=== PATIENT | male | born 1955 | race Caucasian/White ===

== ENCOUNTER 2018-10-24 09:03 | Observation (INO) ==
[2018-10-24] MEDS ORDERED: ASPIRIN PO ONE (09:16)
[2018-10-24] MEDS ORDERED: CARDIZEM IV ONE (09:18)
--- NOTE | 2018-10-24 09:26 | PROVIDER DOCUMENTATION ---
HPI-Cardiac General - General Chief Complaint: Chest Pain Stated Complaint: CHEST PAIN Time Seen by Provider: 10/24/18 09:18 Source: patient Allergies/Adverse Reactions: Patient Allergies Allergy/AdvReac Type Severity Reaction Status Date / Time No Known Allergies Allergy Verified 10/24/18 09:36 Home Medications: Home Medication List Medication Instructions Recorded Confirmed Last Taken Type ATORVAstatin [Lipitor] 40 mg PO QHS 10/04/17 10/24/18 Unknown History Isosorbide Mononitrate E.r. [Imdur] 30 mg PO DAILY 10/04/17 10/24/18 Unknown History Levothyroxine [Synthroid] 50 microgm PO DAILY 10/04/17 10/24/18 Unknown History Metoprolol Succinate E.r. [Toprol 25 mg PO DAILY 10/04/17 10/24/18 Unknown History Xl] Aspirin 81 mg PO DAILY 10/05/17 10/24/18 10/03/17 History Amlodipine Besylate 5 mg PO DAILY 10/24/18 10/24/18 Unknown History Fenofibric Acid (Choline) 135 mg PO DAILY 10/24/18 10/24/18 Unknown History [Fenofibric Acid] Niacin 500 mg PO QHS 10/24/18 10/24/18 Unknown History Omeprazole 40 mg PO DAILY 10/24/18 10/24/18 Unknown History - History of Present Illness-Cardiac Nature of Presenting Problem: chest pains that started this am. pt denies shortness of breath or arm pain. pt reorts history of cardiac disease and [place], patient denied chest pain upon arrival, monitor showed atrial fib RVR which was new onset. patient was no aspirin, no other blood thinner, Location: reports: substernal, central Quality of Pain: reports: pressure, tightness Severity in ED: mild Onset/Duration: abrupt, this afternoon Timing: improving, resolved prior to arrival Context/Activities at Onset: reports: none Modifying Factors: improves with: nothing Palpitation Quality: irregular History of arrythmia: denies: A-Fib, WPW, VT, SVT Nitro Today/Relief: reports: no nitro taken today Aspirin Treatment Today: reports: unknown Prior Chest Pain/Cardiac Workup: reports: other (cabg and stent) Associated Symptoms: denies: abdominal pain, diaphoresis, dizziness, edema, fever/chills, shortness of breath Similar Symptoms Previously?: No Recently Seen Here or By Another Healthcare Provider: No Review of Systems - Adult - REVIEW OF SYSTEMS - ADULT Constitutional: denies: fever, fatique Eyes: reports: no symptoms reported Ears, Nose, Mouth & Throat: reports: no symptoms reported Cardiovascular: reports: chest pain, irregular heart rate, palpitations Respiratory: reports: no symptoms reported Gastrointestinal: reports: no symptoms reported Genitourinary: reports: no symptoms reported Musculoskeletal: reports: no symptoms reported Integumentary: reports: no symptoms reported Neurological: reports: no symptoms reported Psychiatric: reports: no symptoms reported Endocrine: reports: no symptoms reported Hematologic/Lymphatic: reports: no symptoms reported Allergic/Immunologic: reports: no symptoms reported Past History - Adult - PAST MEDICAL HISTORY-ADULT Review of Records: reports: Nursing Assessment Review Major Childhood Illnesses: reports: denies history Cardiovascular: reports: CAD, HTN, hyperlipidemia Endocrine/Immune: reports: Diabetes, thyroid disorder (hypothyroidism) - PRIOR SURGERIES/PROCEDURES Surgical/Procedure History: reports: tonsillectomy, other (tripple bypass) - IMMUNIZATION STATUS Childhood Immunizations: See Nurse Assessment Flu Vaccine: See Nurse Assessment - FAMILY HISTORY Family History: reviewed, not pertinent Physical Exam-General - PHYSICAL EXAM-ADULT Initial Vital Signs Reviewed: Yes - CONSTITUTIONAL General Appearance: appears well, alert - EYES Eyes: PERRL/EOMI - HEAD, EARS, NOSE, MOUTH & THROAT HENMT: normocephalic/atraumatic - NECK Neck: non-tender - RESPIRATORY Respiratory: chest non-tender - CARDIOVASCULAR Cardiovascular: no edema, tachycardia, irregularly irregular - GASTROINTESTINAL (ABDOMEN) Abdominal Exam: normal bowel sounds, non tender, soft, no organomegaly, no pulsatile mass - LYMPHATIC Lymphatic: no adenopathy - MUSCULOSKELETAL Back Exam: normal inspection, no CVA tenderness, no vertebral tenderness Extremity: normal range of motion, non-tender, normal gait, normal inspection, no pedal edema, no calf tenderness - SKIN Integumentary: normal color, warm/dry - NEUROLOGIC Neurologic: instrumentation engineer II-XII nml as tested, grossly normal, no motor/sensory deficits - PSYCHIATRIC Psych/Mental Status: normal mood/affect - HEART Score HEART Score: History: Slightly Suspicious HEART Score: ECG: Non-Specific Repolarization Disturbance/LBBB/PM HEART Score: Age: 45-65 Years HEART Score: Risk Factors for Atherosclerotic Disease: > or = 3 Risk Factors or History of Atherosclerotic Disease HEART Score: Troponin: < or = Normal Limit Total HEART Score:: 4 Progress - PLAN OF CARE/RESULTS Progress/Plan/Lab Results: Vital Signs - 8 hr 10/24/18 09:05 10/24/18 09:16 10/24/18 09:17 Temperature 97.9 F Pulse Rate 109 H 104 H 162 H Respiratory Rate 20 35 H 13 Blood Pressure 146/71 124/87 O2 Sat by Pulse Oximetry 95 95 93 L 10/24/18 09:30 10/24/18 09:45 10/24/18 09:46 Temperature Pulse Rate 90 91 H 90 Respiratory Rate 25 H 15 13 Blood Pressure 102/65 O2 Sat by Pulse Oximetry 93 L 92 L 93 L 10/24/18 10:00 10/24/18 10:01 10/24/18 10:15 Temperature Pulse Rate 92 H 88 Respiratory Rate 13 25 H Blood Pressure 101/66 O2 Sat by Pulse Oximetry 95 93 L 10/24/18 10:16 10/24/18 10:30 10/24/18 10:31 Temperature Pulse Rate 92 H 95 H 90 Respiratory Rate 13 14 11 L Blood Pressure 108/60 91/61 O2 Sat by Pulse Oximetry 92 L 94 L 93 L 10/24/18 10:46 10/24/18 11:00 10/24/18 11:02 Temperature Pulse Rate 84 93 H 90 Respiratory Rate 20 16 20 Blood Pressure 113/73 106/51 O2 Sat by Pulse Oximetry 95 91 L 92 L 10/24/18 11:16 10/24/18 11:30 10/24/18 11:31 Temperature Pulse Rate 87 91 H 90 Respiratory Rate 20 25 H 20 Blood Pressure 105/70 119/63 O2 Sat by Pulse Oximetry 93 L 92 L 93 L 10/24/18 11:47 10/24/18 12:00 10/24/18 12:01 Temperature Pulse Rate 82 95 H 85 Respiratory Rate 14 15 15 Blood Pressure 100/63 102/57 O2 Sat by Pulse Oximetry 94 L 92 L 94 L Laboratory Results - last 24 hr 10/24/18 10/24/18 10/24/18 09:19 09:19 09:19 WBC 8.17 RBC 5.79 Hgb 16.6 Hct 46.4 MCV 80.1 L MCH 28.7 MCHC 35.8 RDW Std Deviation 13.5 Plt Count 243 MPV 11.6 H Immature Gran % (Auto) 0.4 Neut % (Auto) 61.0 Lymph % (Auto) 24.5 [place] % (Auto) 11.6 H Eos % (Auto) 2.0 Baso % (Auto) 0.5 Immature Gran # (Auto) 0.03 Neut # (Auto) 4.99 Lymph # (Auto) 2.00 [place] # (Auto) 0.95 H Eos # (Auto) 0.16 Baso # (Auto) 0.04 PT INR PTT (Actin FS) Sodium 136 Potassium 3.8 Chloride 100 Carbon Dioxide 22 L Anion Gap 14 BUN 13 Creatinine 0.9 Estimated GFR/1.73 m2 > 60 BUN/Creatinine Ratio 14 Glucose 311 H Calculated Osmolality 284 Calcium 9.2 Total Bilirubin 0.71 AST 28 ALT 40 Alkaline Phosphatase 117 Creatine Kinase 71 Troponin T Pdt-I-Fhhtcbmoyhe Pept 168 Total Protein 6.5 Albumin 4.1 Globulin 2.4 Albumin/Globulin Ratio 1.7 10/24/18 10/24/18 09:19 09:19 WBC RBC Hgb Hct MCV MCH MCHC RDW Std Deviation Plt Count MPV Immature Gran % (Auto) Neut % (Auto) Lymph % (Auto) [place] % (Auto) Eos % (Auto) Baso % (Auto) Immature Gran # (Auto) Neut # (Auto) Lymph # (Auto) [place] # (Auto) Eos # (Auto) Baso # (Auto) PT 12.3 INR 0.85 PTT (Actin FS) 27.1 Sodium Potassium Chloride Carbon Dioxide Anion Gap BUN Creatinine Estimated GFR/1.73 m2 BUN/Creatinine Ratio Glucose Calculated Osmolality Calcium Total Bilirubin AST ALT Alkaline Phosphatase Creatine Kinase Troponin T < 0.010 Bys-X-Acpfskwotfk Pept Total Protein Albumin Globulin Albumin/Globulin Ratio Orders Category Date Time Status Cardiac Monitoring DIRECTED Care 10/24/18 09:16 Active Saline Loc NOW Care 10/24/18 09:16 Active CHEST-2 VIEWS [RAD] Stat Exams 10/24/18 09:16 Completed CBC WITH ELECTRONIC DIFF [HEME] Stat Lab 10/24/18 09:19 Completed CK PROFILE [SP CHEM] Stat Lab 10/24/18 09:19 Completed COMPREHENSIVE METABOLIC PANEL [CHEM] Stat Lab 10/24/18 09:19 Completed PRO B-NATRIURETIC PEPTIDE Stat Lab 10/24/18 09:19 Completed PROTIME WITH INR [COAG] Stat Lab 10/24/18 09:19 Completed PTT [COAG] Stat Lab 10/24/18 09:19 Completed TROPONIN T Stat Lab 10/24/18 09:19 Completed Aspirin Med 10/24/18 09:16 Discontinued 325 mg PO NOW ONE Diltiazem [Cardizem] Med 10/24/18 09:18 Discontinued 10 mg IV NOW ONE CP/SOB/Palp >45 yrs of Age Stat Oth 10/24/18 09:16 Ordered EKG [EKG] Stat Ther 10/24/18 09:16 Draft EKG [EKG] Stat Ther 10/24/18 09:29 Draft Result Diagrams: 10/24/18 09:19 10/24/18 09:19 - EKG 1 Time of EKG reading by physician:: : EKG Read and Signed by:: Grace Turner EKG Interpretation (*Must complete 3 of following elements*): Abnormal Rate: 135 Rhythm: atrial fibrillation with rapid ventricular response [place]: normal Comments: nonspecific ST and T wave abnormality 2 Time of EKG reading by physician:: EKG Read and Signed by:: Grace Turner EKG Interpretation (*Must complete 3 of following elements*): Abnormal (possible anterior infarct, age undetermined) Rate: 91 Rhythm: normal sinus rhythm QRS: LVH (minimal voltage criteria, may be normal variant) NE Interval: normal Comments: inferior infarct, age undetermined; - XRAY 1 XRAY Study: Chest Impression: See EMR Report ( CHEST-2 VIEWS - 10/24/2018 INDICATION: chest pain COMPARISON: 11/27/2017 FINDINGS: Stable CABG changes. Lung volumes are lower with increasing elevation of the right hemidiaphragm. There is nonspecific right lower lobe linear atelectasis. There is also some stable linear atelectasis in the left lower lobe. Otherwise no infiltrates or edema. No pneumothorax or pleural effusion. Heart size is normal. IMPRESSION: Nonspecific findings. Electronically signed by Charly Luna 10/24/2018 10:17 AM 10/24/18 1017 Interpreting Physician: Charly Luna MD Dictated Date/Time: 10/24/18 1017 cc: Grace Turner MD; Tex Singh MD) Departure - Departure Date of Disposition Decision: 10/24/18 Time of Disposition Decision: 12:50 DIAGNOSIS: Chest pain, Atrial fibrillation with RVR Disposition: ADMITTED INPATIENT 09 Certified Medical Emergency: Emergent Condition: Good Referrals and Follow-Ups: Tex Singh MD [Primary Care Provider] - - Critical Care Note This patient required my direct & personal management of CC.: No Attestation - Physician/ CECI Attestation Patient care was provided by Advanced Practice Provider:: No The physician spent face to face time with patient:: Yes Advanced Practice Provider documentation review:: Supervising physician onsite and consulted in the evaluation and care of this patient. The physician did have a face to face encounter with the patient.
[2018-10-24 09:42] LABS: BASO# 0.04 X1000 (0.0-0.2); BASO% 0.5 % (0.0-0.8); EOS# 0.16 X1000 (0.0-0.7); HEMATOCRIT 46.4 % (42.0-52.0); HEMOGLOBIN 16.6 g/dL (14.0-18.0); IMM GRAN# 0.03 X1000 (0.0-0.04); IMM GRAN% 0.4 % (0.0-0.5); LYMPH% 24.5 % (20.5-51.1); MCH 28.7 PG (27-31); MCHC 35.8 g/dL (33-37); MCV 80.1 FL (81-99); MONO# 0.95 X1000 (0.11-0.59); MONO% 11.6 % (1.7-9.3); MPV 11.6 FL (7.4-10.4); NEUT# 4.99 X1000 (1.4-6.5); PLT 243 X1000 (130-400); RBC 5.79 XMIL (4.7-6.1); RDW 13.5 % (11.5-14.5); WBC 8.17 X1000 (4.8-10.8)
[2018-10-24 09:47] LABS: INR 0.85; PROTIME 12.3 Seconds (11.0-16.0); PTT 27.1 Seconds (22.3-41.8)
[2018-10-24 10:04] LABS: AGAP 14; ALB/GLOB RATIO 1.7; ALBUMIN 4.1 g/dL (3.5-5.0); ALKALINE PHOSPHATASE 117 U/L (32-122); BUN 13 mg/dL (8-22); CALCIUM 9.2 mg/dL (8.8-10.2); CHLORIDE 100 mmol/L (98-107); CK PROFILE 71 U/L (24-204); COSMO 284; CREATININE 0.9 mg/dL (0.7-1.2); ESTIMATED GFR > 60; GLUCOSE 311 mg/dL (70-104); GOT 28 U/L (10-34); GPT 40 U/L (10-44); POTASSIUM 3.8 mmol/L (3.5-5.1); SODIUM 136 mmol/L (136-145); TCO2 22 mmol/L (25-35); TOTAL BILIRUBIN 0.71 mg/dL (0.20-1.00); TOTAL PROTEIN 6.5 g/dL (6.3-8.3)
--- NOTE | 2018-10-24 10:20 | Diag Imaging Result Doc PS360 ---
CHEST-2 VIEWS - 10/24/2018 INDICATION: chest pain COMPARISON: 11/27/2017 FINDINGS: Stable CABG changes. Lung volumes are lower with increasing elevation of the right hemidiaphragm. There is nonspecific right lower lobe linear atelectasis. There is also some stable linear atelectasis in the left lower lobe. Otherwise no infiltrates or edema. No pneumothorax or pleural effusion. Heart size is normal. IMPRESSION: Nonspecific findings. Electronically signed by Charly Luna 10/24/2018 10:17 AM
--- NOTE | 2018-10-24 12:09 | EKG Report ---
Test Performed on : 10/24/2018 09:12:51 AM Test Reason : chest pain Blood Pressure : / mmHG Vent. Rate : 135 BPM Atrial Rate : 135 BPM P-R Int : 000 ms QRS Dur : 088 ms QT Int : 286 ms P-R-T Axes : 000 009 -39 degrees QTc Int : 429 ms Atrial fibrillation. with rapid ventricular response. Nonspecific ST and T wave abnormality Abnormal ECG When compared with ECG of 27-NOV-2017 15:22, Atrial fibrillation. has replaced Sinus rhythm. Vent. rate has increased BY 64 BPM Nonspecific T wave abnormality has replaced inverted T waves in Inferior leads Unconfirmed Result
--- NOTE | 2018-10-24 12:21 | EKG Report ---
Test Performed on : 10/24/2018 09:29:33 AM Test Reason : CONFIRM CONVERSION Blood Pressure : / mmHG Vent. Rate : 091 BPM Atrial Rate : 091 BPM P-R Int : 174 ms QRS Dur : 086 ms QT Int : 344 ms P-R-T Axes : 051 -03 030 degrees QTc Int : 423 ms Normal sinus rhythm. Minimal voltage criteria for LVH, may be normal variant Inferior infarct , age undetermined Possible Anterior infarct , age undetermined Abnormal ECG When compared with ECG of 24-OCT-2018 09:12, (Unconfirmed) Sinus rhythm. has replaced Atrial fibrillation. Inferior infarct is now present Non-specific change in ST segment in Inferior leads Nonspecific T wave abnormality, improved in Lateral leads Unconfirmed Result
[2018-10-24] MEDS ORDERED: MORPHINE IV PRN (14:14)
[2018-10-24] MEDS ORDERED: ZOFRAN IV PRN (14:14)
[2018-10-24] MEDS ORDERED: LOPRESSOR PO ONE (17:55)
--- NOTE | 2018-10-24 21:03 | CONSULTATION ---
DATE OF CONSULTATION: 10/24/2018 IMPRESSION: 1. Recurrent angina which appears to have been provoked by atrial fibrillation with rapid ventricular rate. Patient has spontaneously converted back to sinus rhythm and had a brief recurrence of atrial tachyarrhythmia since admission. 2. Atherosclerotic coronary disease with history of previous coronary bypass grafting in 2005. The patient presented with accelerating angina in September 2017 and ultimately had coronary angioplasty/stenting at several sites in his coronary circulation at [facility]. Reports pending. 3. Type 2 diabetes mellitus. 4. Hypertension. 5. Hyperlipidemia. RECOMMENDATIONS: 1. Suppress atrial fibrillation with sotalol. 2. Follow up cardiac enzymes. 3. Reassess coronary disease with Lexiscan myocardial perfusion imaging. 4. Given CHADs-VASc score, the patient ultimately would benefit from anticoagulation for thromboembolic risk protection. HISTORY: This 63-year-old, white male with past history of atherosclerotic coronary disease as outlined above, previous coronary bypass grafting in 2005, coronary angioplasty/stenting at several sites in September 2017, diabetes mellitus, hyperlipidemia, and hypertension was admitted to emergency room after he presented with recurrent angina. ECG demonstrated atrial fibrillation with rapid ventricular rate. He spontaneously converted back to sinus rhythm. He briefly demonstrates some recurrence of his atrial fibrillation with rapid ventricular rate. Cardiology is being consulted. He reports that he has been doing well. Since his angioplasty/stent procedure last September of 2017. Today, he was doing laundry and developed moderate substernal chest discomfort/tightness similar to what he has experienced in the past with his coronary disease. Discomfort persisted. He checked his blood pressure and blood pressure was normal. With persistent symptoms, he came to the emergency room. He was found to be in atrial fibrillation with rapid ventricular rate. Patient has spontaneously converted back to sinus rhythm. He has had some brief recurrence of atrial fibrillation with rapid ventricular rate. He relates some mild lightheadedness with his symptoms. There has been no syncope. PAST MEDICAL HISTORY: 1. Atherosclerotic coronary disease. 2. Hypertension. 3. Type 2 diabetes mellitus. 4. Hyperlipidemia. 5. Hypothyroidism. 6. Gastroesophageal reflux disease. PAST SURGICAL HISTORY: Includes coronary bypass graft in 2006 and remote tonsillectomy. ALLERGIES: He is allergic or intolerant to metformin. SOCIAL HISTORY: He does not smoke or use alcohol. FAMILY HISTORY: Positive for coronary disease. REVIEW OF SYSTEMS: Pulmonary: Negative. Gastrointestinal: Negative. Constitutional: Negative. The remainder of the review of systems negative/noncontributory with 14 total systems reviewed. PHYSICAL EXAMINATION: General: This is a obese older white male in no distress on room air. Vital signs: Blood pressure 126/75, heart rate 86 and regular. Oxygen saturation 98% on room air. HEENT: Extraocular movements intact. Mucous membranes moist. Neck: Supple without jugular venous distention. There are no carotid bruits. Chest: Clear to auscultation. Cardiac Exam: Reveals a regular rate and rhythm without appreciable murmur or gallop. Abdomen: Soft. Bowel sounds are normal. Extremities: Without edema. Neurologic: Reveals him to be alert and fully oriented. Speech is fluent. Moves all 4 extremities equally well. Skin: Warm dry. Psychiatric: Reveals mood to be appropriate. EKG: A 12-lead EKG demonstrates sinus rhythm and mild nonspecific T-wave abnormality. PERTINENT DATA: A 12-lead EKG on presentation emergency room demonstrates atrial fibrillation with rapid ventricular rate and nonspecific ST and T-wave abnormality. LABORATORY DATA: Includes white blood cell count 8.17, hematocrit 46.4, hemoglobin 16.6, platelet count 243,000. Sodium 136, potassium 3.8, chloride 100, carbon dioxide 22, BUN 13, creatinine 0.9, glucose 311. Initial troponin less than 0.01. Followup troponin less than 0.01. CPK 71. cc: MD Tex High MD
--- NOTE | 2018-10-24 21:36 | HISTORY AND PHYSICAL ---
CHIEF COMPLAINT: Chest pain. HISTORY OF PRESENT ILLNESS: Mr. Wolff, a 63-year-old white gentleman, was in his usual state of health this morning when the patient had chest pain which he described as retrosternal, precordial. It was tightness. The patient also had palpitations, lasted for many minutes. The patient also had some shortness of breath. Pain was getting worse. The patient could not wait; he came to the emergency room. In the ER, heart monitor revealed atrial fibrillation with rapid ventricular response. The patient took 2 baby aspirin at home. The patient was given IV Cardizem. He was converted to sinus rhythm. Chest pain improved. The patient does have strong family history of coronary artery disease. He had [place], requiring CABG a few years ago. The patient had a stress test done about a year ago, requiring 3 stent placement. The patient denied any dyspnea on exertion prior to this episode. No high-grade fever or chills. The patient does get fatigued and tired easily. Multiple risk factors including uncontrolled diabetes, hypertension, hyperlipidemia, male, and known coronary artery disease. Because of strong history of coronary artery disease, typical presentation, we decided to admit the patient for further care and cardiac workup. The patient denied any dysuria or hematuria. The patient does have polyuria and polydipsia. No diarrhea or blood or mucus in the stool. The patient does have diabetes. He was on metformin but stopped taking it because of side effects of metformin. At times arthritic pain in the knee. No heat or cold intolerance. No focal numbness, tingling, weakness. Denied any headache. No further history available at this time. ALLERGIES: Metformin, causing diarrhea. MEDICATIONS: Current medications include Prilosec, niacin, fenofibric acid, Norvasc, aspirin, Toprol-XL, Synthroid, Imdur and Lipitor. PAST MEDICAL HISTORY: Significant for coronary artery disease, status post CABG; hypertension; hyperlipidemia; diabetes mellitus; gastritis and reflux disease; osteoarthritis; vitamin B12 deficiency. SOCIAL HISTORY: Single. Nonsmoker. Denied alcohol or substance abuse. FAMILY HISTORY: Significant for coronary artery disease with CABG in mother. Mother also had AVR, carotid disease, large B cell lymphoma. His father had coronary artery disease with CABG, carotid disease and permanent pacemaker. REVIEW OF SYSTEMS: As per HPI. PHYSICAL EXAMINATION: GENERAL: Elderly white gentleman, morbidly obese in no acute distress. VITAL SIGNS: Blood pressure 146/71, pulse 109, respirations 20, temperature 97.9 degrees. SKIN: Normal turgor. No rash or petechiae. HEENT: Head atraumatic, normocephalic. Fords conjunctivae. Anicteric sclerae. Extraocular muscle movement normal. Fundus cannot be penetrated. Good oral hygiene. No tonsillopharyngeal congestion or exudate. Ears and nose benign. NECK: Supple. No JVD, thyromegaly or lymphadenopathy. CHEST: Bilateral good air entry present. No rales or rhonchi. CARDIOVASCULAR: S1 and S2 heard. No gallop or thrill. ABDOMEN: Soft, globular. Bowel sounds present. No organomegaly or mass. EXTREMITIES: No cyanosis or clubbing. No acute DVT. Peripheral pulsation intact. SKID MAN: Alert, awake. Answering questions fairly well. Able to move all 4 limbs. Crepitation in both knee joints. LABORATORY DATA: Hemoglobin 16.6, hematocrit 46.4, WBC count 8.17, platelet count 243,000. PT/INR 0.85, PTT 27.1. Blood glucose was 311, magnesium 1.8. Cardiac isoenzymes were negative. DIAGNOSTIC DATA: The patient's initial EKG revealed atrial fibrillation with rapid ventricular response. Repeat EKG reveals atrial flutter. ASSESSMENT AND PLAN: I evaluated the patient. Admit the patient. Telemetry monitoring, oxygen, check appropriate labs. Cardiology consult. Overall plan discussed with the patient. He is in agreement. We will start the patient on the Accu-Chek monitoring and sliding scale insulin. Consider Lexiscan. Check TSH and free T4. cc: Tex Singh MD
[2018-10-24] MEDS: HUMALOG SUBQ SCH (21:42)
[2018-10-24] MEDS: BETAPACE PO SCH (21:42)
[2018-10-24] MEDS: LIPITOR PO SCH (21:42)
[2018-10-25 05:59] LABS: HEMATOCRIT 43.9 % (42.0-52.0); HEMOGLOBIN 15.5 g/dL (14.0-18.0); MCH 28.7 PG (27-31); MCHC 35.3 g/dL (33-37); MCV 81.3 FL (81-99); MPV 11.5 FL (7.4-10.4); NEUT% 56.4 % (42.2-75.2); PLT 184 X1000 (130-400); RDW 13.6 % (11.5-14.5); WBC 6.15 X1000 (4.8-10.8)
[2018-10-25 06:00] LABS: BASO# 0.03 X1000 (0.0-0.2); BASO% 0.5 % (0.0-0.8); EOS# 0.26 X1000 (0.0-0.7); EOS% 4.2 % (0.0-10.0); LYMPH# 1.72 X1000 (1.2-3.4); MONO# 0.67 X1000 (0.11-0.59); MONO% 10.9 % (1.7-9.3); NEUT# 3.47 X1000 (1.4-6.5)
[2018-10-25 06:13] LABS: HEMOGLOBIN A1C 9.1 % (4.8-6.0)
[2018-10-25 06:26] LABS: AGAP 11; ALB/GLOB RATIO 1.3; ALBUMIN 3.7 g/dL (3.5-5.0); ALKALINE PHOSPHATASE 94 U/L (32-122); BUN 14 mg/dL (8-22); CALCIUM 8.7 mg/dL (8.8-10.2); CHLORIDE 105 mmol/L (98-107); COSMO 286; CREATININE 0.9 mg/dL (0.7-1.2); ESTIMATED GFR > 60; GLUCOSE 202 mg/dL (70-104); GOT 27 U/L (10-34); GPT 39 U/L (10-44); MAGNESIUM 1.7 mg/dL (1.5-2.7); POTASSIUM 3.8 mmol/L (3.5-5.1); SODIUM 140 mmol/L (136-145); TCO2 24 mmol/L (25-35); TOTAL BILIRUBIN 0.74 mg/dL (0.20-1.00); TOTAL PROTEIN 6.5 g/dL (6.3-8.3)
[2018-10-25 06:35] LABS: FREE T4 1.32 ng/dL (0.93-1.70); TSH 2.43 uIUmL (0.27-4.20)
[2018-10-25] MEDS: HUMALOG SUBQ SCH ×4 (06:44→21:24)
--- NOTE | 2018-10-25 07:15 | EKG Report ---
Test Performed on : 10/24/2018 5:33:32 PM Test Reason : aflutter rate up to 150/min Blood Pressure : / mmHG Vent. Rate : 085 BPM Atrial Rate : 085 BPM P-R Int : 160 ms QRS Dur : 084 ms QT Int : 368 ms P-R-T Axes : 000 004 -55 degrees QTc Int : 437 ms Sinus rhythm. with premature supraventricular complexes. Cannot rule out Inferior infarct (cited on or before 24-OCT-2018) Abnormal ECG When compared with ECG of 24-OCT-2018 09:29, (Unconfirmed) premature supraventricular complexes. are now present Confirmed by Federico PENALOZA, Franklin Gutierrez ([id number]) on 10/25/2018 4:19:29 PM
--- NOTE | 2018-10-25 07:57 | PROGRESS NOTE ---
DATE: 10/25/2018 SUBJECTIVE: Mr. Wolff is doing better. He denied any chest pain or palpitations since yesterday evening. No fever or chills. No nausea or vomiting. Does have polyuria, polydipsia. Blood sugar was staying high. No unusual cough or expectoration. Cardiology consult noted. OBJECTIVE: Vital Signs: Blood pressure 102/56, pulse 66, respirations 17, temperature 99.5 degrees. Skin: Normal turgor. No rash or petechiae. Neck: Supple. No JVD. Lungs: Bilateral good air entry present. CVS: S1 and S2 heard. Abdomen: Soft, nontender. Bowel sounds present. COMPUTER ANALYST: Alert, awake, able to move all 4 limbs. No acute DVT clinically. LABORATORY DATA: Done this morning, WBC count 6.15, hemoglobin 15.5, hematocrit 43.9, platelet count was 184,000. Electrolytes fairly benign. Blood sugar was elevated. Hemoglobin A1c was 9.1. TSH 2.43, free T4 1.32. Cardiac isoenzymes negative. CONSIDERATION: Paroxysmal atrial fibrillation, chest pain with multiple risk factors, and history of coronary artery disease. The patient is scheduled to have a Lexiscan today. Atrial flutter and fibrillation, uncontrolled diabetes mellitus, history of hypertension, hyperlipidemia. Cardiology consult noted. Overall plan discussed with the patient. Optimize proper control of diabetes. Start the patient on anticoagulation. Overall discussed side effects and precaution. Overall plan discussed with the patient and he is in agreement. cc: Tex Singh MD
[2018-10-25] MEDS ORDERED: SYNTHROID PO SCH (09:00)
[2018-10-25] MEDS ORDERED: ASPIRIN PO SCH (09:00)
[2018-10-25] MEDS ORDERED: TOPROL XL PO SCH (09:00)
[2018-10-25] MEDS ORDERED: LEXISCAN ONE (09:09)
[2018-10-25] MEDS ORDERED: AMINOPHYLLINE ONE (09:27)
[2018-10-25] MEDS: TRICOR PO SCH (13:30)
[2018-10-25] MEDS: BETAPACE PO SCH ×2 (13:30→21:24)
[2018-10-25] MEDS: PRILOSEC PO SCH (13:30)
[2018-10-25] MEDS: IMDUR PO SCH (13:30)
[2018-10-25] MEDS: NORVASC PO SCH (13:31)
[2018-10-25] MEDS: ASPIRIN PO SCH (13:33)
--- NOTE | 2018-10-25 15:11 | EKG Report ---
Test Performed on : 10/25/2018 2:55:47 PM Test Reason : paroxysmal AF Blood Pressure : / mmHG Vent. Rate : 074 BPM Atrial Rate : 074 BPM P-R Int : 158 ms QRS Dur : 096 ms QT Int : 394 ms P-R-T Axes : 044 050 031 degrees QTc Int : 437 ms Normal sinus rhythm. Cannot rule out Anterior infarct , age undetermined Abnormal ECG When compared with ECG of 24-OCT-2018 17:33, (Unconfirmed) premature supraventricular complexes. are no longer present Minimal criteria for Anterior infarct are now present Minimal criteria for Inferior infarct are no longer present ST no longer elevated in Inferior leads Nonspecific T wave abnormality, improved in Inferior leads Nonspecific T wave abnormality no longer evident in Anterior leads Confirmed by Federico PENALOZA, Franklin Gutierrez ([id number]) on 10/25/2018 4:20:40 PM
--- NOTE | 2018-10-25 15:19 | Diag Imaging Result Document ---
PROCEDURE NAME: MYOCARDIAL PERF SCAN, STR/REST - 10/25/2018 STUDY: Lexiscan sestamibi interpretation SUMMARY: The patient was administered 14.2 mCi of technetium-99m sestamibi, after which resting cardiac images were obtained. Patient was subsequently administered Lexiscan 0.4 mg intravenously after which the heart rate went from 69 beats per minute to 88 beats per minute. The blood pressure went from 146/90 to 102/70. With Lexiscan, the patient denied chest discomfort. Following the administration of Lexiscan, the patient was administered 41.9 mCi of technetium-99m sestamibi, after which gated stress cardiac images were obtained. Baseline ECG demonstrated sinus rhythm and nonspecific ST and T wave abnormality. With Lexiscan, there were no diagnostic ST segment shifts. SPECT images were reconstructed in the short, horizontal, and vertical long axes. Review of these images demonstrated no scintigraphic evidence of inducible myocardial ischemia or prior infarct. Gated images demonstrate a calculated left ventricular ejection fraction of 64% with symmetrical wall motion/thickening. CONCLUSIONS: 1. Adequate response to Lexiscan. 2. Clinically negative for chest pain. 3. Electrocardiographically, there were no diagnostic ST segment changes on ECG following administration of Lexiscan. 4. Lexiscan sestamibi images demonstrate no scintigraphic evidence of inducible myocardial ischemia. Normal left ventricular systolic function demonstrated. cc: Herrera Cesar MD
--- NOTE | 2018-10-25 15:27 | PROGRESS NOTE ---
DATE: 10/25/2018 SUBJECTIVE: Patient continues without chest discomfort, shortness of breath, or palpitations. He remains in sinus rhythm. OBJECTIVE: Vital signs: Blood pressure 124/72, heart rate 74 and regular with ECG monitor showing sinus rhythm. Oxygen saturation 96% on room air. Neck: There is no significant jugular venous distention. Chest: Clear to auscultation. Cardiac Exam: Reveals a regular rate and rhythm without appreciable murmur or gallop. There is no evidence of peripheral edema. LABORATORY DATA: Includes a white blood cell count 6.15, hematocrit 43.9, hemoglobin 15.5, platelet count 184,000. Sodium 140, potassium 3.8, chloride 105, carbon dioxide 24, BUN 14, creatinine 0.9, glucose 202. A 12 lead EKG demonstrates sinus rhythm and mild nonspecific T-wave abnormality. Cannot exclude previous inferior infarct of undetermined age. IMPRESSIONS: 1. Paroxysmal atrial fibrillation with rapid ventricular rate. Patient continues in sinus rhythm on sotalol, just initiated yesterday evening. 2. Atherosclerotic coronary disease with previous coronary bypass grafting in 2005 and several angioplasty/stents last year. Patient had angina with atrial fibrillation with rapid ventricular rate. However, stress myocardial perfusion study suggests clinically stable. 3. Type 2 diabetes mellitus. 4. Hypertension. 5. Hyperlipidemia. RECOMMENDATIONS: 1. Continue sotalol 80 mg p.o. b.i.d. 2. Given CHADS-VASc score 2, patient has some degree of thromboembolic risk related to paroxysmal atrial fibrillation and would benefit from anticoagulation. This was discussed with him at length. Will discontinue Effient. At time of discharge recommend initiating patient on Eliquis. 3. Continue to observe on telemetry another 24 hours. cc: MD Tex High MD
[2018-10-25] MEDS ORDERED: LANTUS INSULIN SUBQ SCH (20:00)
[2018-10-25] MEDS: LIPITOR PO SCH (21:24)
[2018-10-25] MEDS: ELIQUIS PO SCH (21:25)
[2018-10-26] MEDS: HUMALOG SUBQ SCH ×2 (06:49→11:30)
--- NOTE | 2018-10-26 07:47 | EKG Report ---
Test Performed on : 10/25/2018 5:39:53 PM Test Reason : PAF Blood Pressure : / mmHG Vent. Rate : 067 BPM Atrial Rate : 067 BPM P-R Int : 164 ms QRS Dur : 092 ms QT Int : 428 ms P-R-T Axes : 025 000 024 degrees QTc Int : 452 ms Normal sinus rhythm. Inferior infarct , age undetermined Abnormal ECG When compared with ECG of 25-OCT-2018 14:55, No significant change was found Confirmed by Federico PENALOZA, Franklin Gutierrez ([id number]) on 10/30/2018 7:25:55 PM
[2018-10-26] MEDS: ELIQUIS PO SCH (08:08)
[2018-10-26] MEDS: ASPIRIN PO SCH (08:08)
[2018-10-26] MEDS: TRICOR PO SCH (08:10)
[2018-10-26] MEDS: IMDUR PO SCH (08:10)
[2018-10-26] MEDS: NORVASC PO SCH (08:10)
[2018-10-26] MEDS: BETAPACE PO SCH (08:10)
[2018-10-26] MEDS: PRILOSEC PO SCH (08:10)
--- NOTE | 2018-10-26 09:54 | EKG Report ---
Test Performed on : 10/26/2018 09:22:33 AM Test Reason : PAF, sotalol started 10/24/18 Blood Pressure : / mmHG Vent. Rate : 070 BPM Atrial Rate : 070 BPM P-R Int : 160 ms QRS Dur : 092 ms QT Int : 414 ms P-R-T Axes : 014 -02 003 degrees QTc Int : 447 ms Normal sinus rhythm. Inferior infarct (cited on or before 24-OCT-2018) Abnormal ECG When compared with ECG of 25-OCT-2018 17:39, (Unconfirmed) No significant change was found Confirmed by Federico PENALOZA, Franklin Gutierrez ([id number]) on 10/30/2018 7:26:38 PM
[2018-10-26 11:58] VITALS: BP 116/64
--- NOTE | 2018-10-26 13:32 | PROGRESS NOTE ---
DATE: 10/26/2018 SUBJECTIVE: Patient continues without chest discomfort, dyspnea, or palpitations. OBJECTIVE: Vital Signs: Blood pressure 116/64, heart rate 67 and regular with ECG monitor showing sinus rhythm. Neck: There is no significant jugular venous distention. Chest: Clear to auscultation. Cardiac: Exam reveals a regular rate and rhythm without appreciable murmur or gallop. There is also peripheral edema. Repeat ECG demonstrates sinus rhythm. Probable inferior infarct of undetermined age, cannot rule out inferior infarct of undetermined age. IMPRESSION: 1. Paroxysmal atrial fibrillation. Patient continues in sinus rhythm on sotalol. 2. Atherosclerotic coronary disease with previous coronary bypass graft in 2005, and several angioplasty/stent procedures one year ago. Patient had angina with atrial fibrillation with rapid ventricular rate. However stress myocardial perfusion study suggests stable coronary perfusion. 3. Type 2 diabetes mellitus. 4. Hypertension. 5. Hyperlipidemia. RECOMMENDATIONS: 1. Continue sotalol 80 mg p.o. b.i.d. 2. Continue Eliquis 5 mg p.o. b.i.d. 3. The patient appears clinically stable from a cardiovascular standpoint to be discharged today. cc: MD Tex High MD
--- NOTE | 2018-10-27 09:05 | DISCHARGE SUMMARY ---
ADMISSION DATE: 10/24/2018 DISCHARGE DATE: 10/26/2018 FINAL DISCHARGE DIAGNOSIS: 1. Chest pain. 2. Paroxysmal atrial fibrillation. 3. Uncontrolled diabetes mellitus. 4. Hypertension. 5. Hyperlipidemia. 6. Gastritis. 7. Reflux disease. HISTORY OF PRESENT ILLNESS: Mr. Wolff is a 63-year-old, white gentleman, admitted with chest pain, palpitations. Chest pain was pressure-like associated and tightness associated with palpitations, some shortness of breath. The patient also had multiple risk factors for coronary artery disease including [place]. The patient had stent placement. The patient was admitted on telemetry bed. Cardiology consult obtained. The patient underwent stress test. The stress test was negative. Patient converted to sinus rhythm. The patient was started on sotalol. No typical chest pains or palpitations. I started patient on insulin, explained patient how to take it. The patient was not able to tolerate the Glucophage well. I am going to try Janumet. Discuss hypoglycemia and side effects. Patient was able to ambulate well in the room and hallway. The account executive sales representative okay patient to go home. DISCHARGE MEDICATION: The risk of hypoglycemia, anticoagulation discussed with the patient. PHYSICAL EXAMINATION: The vital signs noted. Lungs clear. Heart regular. Abdomen is soft, nontender. Bowel sounds present. [employer]: Alert, awake able to move all 4 limbs. LABORATORY DATA: Revealed hemoglobin, hematocrit 43.9, WBC count 6.15, platelet count 184,000. PT/ PTT normal. Hemoglobin A1c was 9.1. TSH 2.43, free T4 was 1.32. The stress test results were benign. Chest x-ray was negative. PLAN: Overall the patient received maximum benefit of hospitalization. He will go home on sotalol, Eliquis and insulin. Stop the beta blockers. Follow up with me in a week time. In case of more distress, call us back or go to the emergency room. Follow up with account executive sales representative as scheduled. cc: Tex Singh MD
== END 2018-10-26 14:26 | disposition home or self-care (01) ==
LOC: 4N 09:03 → ED 09:03
PROVIDERS: ADMIT Internal Medicine; ATTEND Internal Medicine
CPT/HCPCS: 71020; 71046; 78452; 80053; 82550; 82948; 83036; 83735; 83880; 84439; 84443; 84484; 85025; 85610; 85730; 93005; 93010; 93017; 94761; 96374; 99285; A9270; A9500; J0280; J0820; J1815; J2785; XXXXX